=== PATIENT | female | born 1955 | race Asian ===

== ENCOUNTER 2018-09-03 20:47 | Emergency (ER) | payer OTHER ==
[2018-09-03 21:43] LABS: BASOPHILS # (AUTO) 0.1 10^3/uL (0.0-0.1); BASOPHILS % (AUTO) 1.5 %; EOSINOPHILS # (AUTO) 0.5 10^3/uL (0.0-0.7); EOSINOPHILS % (AUTO) 7.7 %; HGB - HEMOGLOBIN 12.6 g/dL (12.0-16.0); LYMPHOCYTES # (AUTO) 2.2 10^3/uL (1.5-3.5); LYMPHOCYTES % (AUTO) 31.3 %; MEAN CORPUSCULAR HEMOGLOBIN 27.4 pg (27.0-31.0); MEAN CORPUSCULAR HGB CONC 33.4 g/dL (32.0-36.0); MEAN CORPUSCULAR VOLUME 81.9 fL (81.0-99.0); MEAN PLATELET VOLUME 8.1 fL (7.9-10.8); MONOCYTES # (AUTO) 0.5 10^3/uL (0.0-1.0); MONOCYTES % (AUTO) 6.6 %; NEUTROPHILS # (AUTO) 3.7 10^3/uL (1.5-6.6); NEUTROPHILS % (AUTO) 52.9 %; PLT - PLATELET COUNT 299 10^3/uL (130-450); RED BLOOD COUNT 4.62 10^6/uL (4.20-5.40)
[2018-09-03 21:52] LABS: ALBUMIN 4.5 g/dL (3.2-5.5); ALBUMIN/GLOBULIN RATIO 1.2 (1.0-2.2); BILIRUBIN,TOTAL 0.5 mg/dL (0.2-1.0); CALCIUM 9.4 mg/dL (8.5-10.3); CREATININE 0.9 mg/dL (0.4-1.0); TOTAL PROTEIN 8.3 g/dL (6.7-8.2)
[2018-09-03] MEDS ORDERED: LIDOCAINE VISCOUS 2% 15 ML UDC MM STA (22:45)
[2018-09-03] MEDS ORDERED: MAG HYDROX/AL HYDROX/SIMETH 30 ML UDC PO STA (22:46)
--- NOTE | 2018-09-03 22:48 | ED Physician Documentation ---
PD HPI NVD - Stated complaint Stated Complaint: ABD PX DIARRHEA - Chief complaint Chief Complaint: Abd Pain - History obtained from History obtained from: Patient, Family - History of Present Illness Timing - onset: How many weeks ago (1) Timing - duration: Weeks (1) Timing - details: Gradual onset, Still present Associated symptoms: Other (diarrhea) Contributing factors: Bad food Improved by: BM Similar symptoms before: Has not had sx before Recently seen: Not recently seen Review of Systems Constitutional: reports: Fatigue. denies: Fever, Chills Eyes: denies: Decreased vision Ears: denies: Ear pain Nose: denies: Rhinorrhea / runny nose, Congestion Throat: denies: Oral lesions / sores, Sore throat Cardiac: denies: Chest pain / pressure, Palpitations Respiratory: denies: Dyspnea, Cough GI: reports: Abdominal Pain, Diarrhea. denies: Vomiting : denies: Dysuria, Frequency PD PAST MEDICAL HISTORY - Past Medical History Cardiovascular: Hypertension Respiratory: None Endocrine/Autoimmune: None GI: GERD : None HEENT: None Psych: None Musculoskeletal: None Derm: None - Past Surgical History Past Surgical History: Yes - Present Medications Home Medications: Ambulatory Orders Medication Instructions Recorded Confirmed Telmisartan [Micardis] 40 mg PO DAILY 09/18/13 09/27/14 Pantoprazole [Protonix] 40 mg PO BID 09/26/14 09/27/14 Rizatriptan Benzoate [Maxalt] 10 mg PO ONCE PRN 09/26/14 09/27/14 amLODIPine [Norvasc] 5 mg PO ONCE 09/26/14 09/27/14 raNITIdine [Zantac] 150 mg PO BID 09/27/14 09/27/14 Benzonatate [Tessalon] 100 mg PO TID PRN #20 capsule 09/23/15 Fluticasone [Flonase] 1 sprays ADILENE BID PRN #1 bottle 09/23/15 Olopatadine HCl [Patanol] 1 drop OP BID PRN #1 bottle 09/23/15 Sucralfate [Carafate] 1 gm PO ACHS #60 tablet 09/04/18 - Allergies Allergies/Adverse Reactions: Allergies Allergy/AdvReac Type Severity Reaction Status Date / Time acetaminophen [From Vicodin] Allergy Nausea Verified 08/19/14 13:35 hydrocodone bitartrate * Allergy Nausea Verified 08/19/14 13:35 [From Vicodin] - Social History Does the pt smoke?: No Smoking Status: Never smoker Does the pt drink ETOH?: No - POLST Patient has POLST: No PD ED PE NORMAL - Vitals Vital signs reviewed: Yes (hypertensive ) - General General: Alert and oriented X 3, No acute distress, Well developed/nourished - HEENT HEENT: Atraumatic, PERRL, EOMI - Neck Neck: Supple, no meningeal sign, No bony TTP - Cardiac Cardiac: RRR, No murmur - Respiratory Respiratory: No respiratory distress, Clear bilaterally - Abdomen Abdomen: Soft, Other (mild epgastric tenderness ) - Back Back: No CVA TTP, No spinal TTP - Derm Derm: Normal color, Warm and dry, No rash - Extremities Extremities: No deformity, No edema - Neuro Neuro: Alert and oriented X 3, 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, No motor deficit, No sensory deficit, Normal speech Eye Opening: Spontaneous Motor: Obeys Commands Verbal: Oriented GCS Score: 15 - Psych Psych: Normal mood, Normal affect Results - Vitals Vitals: Vital Signs - 24 hr 09/03/18 21:12 Temperature 36.4 C L Heart Rate 78 Respiratory 16 Rate Blood Pressure 146/81 H O2 Saturation 100 Oxygen O2 Source Room air - Labs Labs: Laboratory Tests 09/03/18 09/03/18 09/03/18 21:25 21:25 23:10 WBC 7.0 RBC 4.62 Hgb 12.6 Hct 37.8 MCV 81.9 MCH 27.4 MCHC 33.4 RDW 14.0 Plt Count 299 MPV 8.1 Neut # (Auto) 3.7 Lymph # (Auto) 2.2 Andrew # (Auto) 0.5 Eos # (Auto) 0.5 Baso # (Auto) 0.1 Absolute Nucleated RBC 0.01 Nucleated RBC % 0.1 Sodium 141 Potassium 3.6 Chloride 106 Carbon Dioxide 28 Anion Gap 7.0 BUN 15 Creatinine 0.9 Estimated GFR (MDRD) 63 L Glucose 91 Calcium 9.4 Total Bilirubin 0.5 AST 25 ALT 20 Alkaline Phosphatase 57 Total Protein 8.3 H Albumin 4.5 Globulin 3.8 Albumin/Globulin Ratio 1.2 Lipase 30 Urine Color LT. YELLOW Urine Clarity HAZY Urine pH 5.5 Ur Specific [place] 1.015 Urine Protein NEGATIVE Urine Glucose (UA) NEGATIVE Urine Ketones NEGATIVE Urine Occult Blood NEGATIVE Urine Nitrite NEGATIVE Urine Bilirubin NEGATIVE Urine Urobilinogen 0.2 (NORMAL) Ur Leukocyte Esterase TRACE H Urine RBC 0-5 Urine WBC 0-3 Ur Squamous Epith Cells NONE SEEN Urine Bacteria None Seen Ur Microscopic Review INDICATED Urine Culture Comments INDICATED Procedures - IVC sono (time) 2240 Bedside IVC sono: IVC measures (cm) (1.2), Dehydration (est 1 liter deficit afte one liter in.) PD MEDICAL DECISION MAKING - ED course Complexity details: reviewed old records, reviewed results, re-evaluated patient, considered differential, d/w patient, d/w family ED course: 62-year-old female with a week long history of diarrhea with dehydration has also developed epigastric distress. She has improvement in her epigastric pain with use of viscous lidocaine and Mylanta. We have also provided Protonix intravenously. Departure - Departure Disposition: 01 Home, Self Care Clinical Impression: Gastritis, Dehydration, Gastroenteritis Instructions: ED Gastroenteritis Viral, ED Dehydration, ED PUD Vs Gastritis Follow-Up: EASTON TINSLEY PA-C [Primary Care Provider] - Prescriptions: Sucralfate [Carafate] 1 gm PO ACHS #60 tablet Comments: Tonight it appears you are dehydrated from the diarrhea and my recommendation is to use some Imodium after your next diarrheal movement. Tonight we were able to hydrate you with intravenous saline and it also appears you have some gastritis. You have had this gastritis previously and we recommend you use a medication to reduce her acid in your stomach for at least 10 days and take the Carafate as well.
[2018-09-03 23:18] LABS: BILIRUBIN,URINE NEGATIVE (NEGATIVE); GLUCOSE, URINE (UA) NEGATIVE (NEGATIVE); KETONES,URINE (UA) NEGATIVE (NEGATIVE); LEUKOCYTE ESTERASE, URINE TRACE (NEGATIVE); NITRITE,URINE NEGATIVE (NEGATIVE); OCCULT BLOOD,URINE NEGATIVE (NEGATIVE); PH,URINE 5.5 PH (5.0-7.5); PROTEIN,URINE NEGATIVE (NEGATIVE); UROBILINOGEN,URINE 0.2 (NORMAL) E.U./dL (NORMAL)
[2018-09-03 23:21] LABS: CLARITY,URINE HAZY (CLEAR)
[2018-09-03 23:28] LABS: BACTERIA,URINE None Seen /HPF (None Seen); RBC,URINE 0-5 /HPF (0-5); SQUAMOUS EPITHELIAL CELL,UR NONE SEEN (<= Few)
[2018-09-03] MEDS ORDERED: SODIUM CHLORIDE 0.9% 1,000 ML IV ONE ×2 (23:33)
[2018-09-03] MEDS ORDERED: PANTOPRAZOLE 40 MG VIAL IVP STA (23:40)
[2018-09-03] MEDS ORDERED: SUCRALFATE 1 GM/10 ML UDC PO STA (23:40)
[2018-09-04 01:11] VITALS: BP 132/79
== END 2018-09-04 01:23 | disposition home or self-care (01) ==
LOC: ED 20:47
DX: K29.70 Gastritis, unspecified, without bleeding (principal); E86.0 Dehydration; K52.9 Noninfective gastroenteritis and colitis, unspecified; I10 Essential (primary) hypertension
CPT/HCPCS: 36415; 80053; 81001; 83690; 85025; 87086; 96374; 99283; 99284; A9270; 81003